=== PATIENT | female | born 1970 | race Caucasian/White ===

== ENCOUNTER → 2022-04-18 | Outpatient (REF) | payer OTHER, BC | LOC: M SFHCDERM 14:13 | PROVIDERS: ATTEND Physician Assistant | DX: D22.61 Melanocytic nevi of right upper limb, including shoulder (principal) ==

== ENCOUNTER → 2024-06-10 | Outpatient (REF) | payer OTHER | LOC: M SFHCDERM 17:46 | PROVIDERS: ATTEND Physician Assistant | DX: D49.2 Neoplasm of unspecified behavior of bone, soft tissue, and skin (principal) ==

== ENCOUNTER 2024-10-01 15:13 | Observation (INO) | payer OTHER ==
[~2024-10-01] VITALS: Ht 170.2 cm; Wt 81.8 kg
[2024-10-01 18:32] VITALS: BP 130/84; TEMP 98.1; O2SAT 95
[2024-10-01] MEDS ORDERED: MOM 30ML SUSPENSION UDC PO PRN (18:40)
[2024-10-01] MEDS: NS (Normal Saline) 0.9% 1,000 ML IV SCH (19:05)
[2024-10-01] MEDS: ACETAMINOPHEN 325 MG TAB PO PRN (19:05)
[2024-10-01] MEDS ORDERED: ULTRACET TAB PO PRN (19:40)
[2024-10-01 19:48] LABS: HEMATOCRIT 41.3 % (36.0-47.0); HEMOGLOBIN 14.3 g/dl (12.0-15.5); MEAN CORPUSCULAR HEMOGLOBIN 31.7 pg (27.0-33.0); MEAN CORPUSCULAR HGB CONC 34.6 g/dl (32.0-36.5); MEAN CORPUSCULAR VOLUME 91.6 fl (80.0-96.0); PLATELET COUNT, AUTOMATED 250 10^3/uL (150-450); RED BLOOD COUNT 4.51 10^6/uL (4.00-5.40); WHITE BLOOD COUNT 11.3 10^3/uL (4.0-10.0)
[2024-10-01] MEDS: traMADol 50 MG TAB PO PRN (20:10)
[2024-10-01 20:16] LABS: ALBUMIN 3.7 G/DL (3.2-5.2); ALKALINE PHOSPHATASE 84 U/L (35-104); ALT/SGPT 38 U/L (7.0-40); AST/SGOT 16 U/L (<34); BILIRUBIN,TOTAL 0.5 MG/DL (0.3-1.2); BLOOD UREA NITROGEN 19 MG/DL (9-23); CALCIUM LEVEL 9.3 MG/DL (8.5-10.1); CARBON DIOXIDE LEVEL 25 MMOL/L (20-31); CHLORIDE LEVEL 108 MMOL/L (98-107); GLOMERULAR FILTRATION RATE > 60.0 (>51); GLUCOSE, FASTING 134 MG/DL (60-100); POTASSIUM SERUM 3.9 MMOL/L (3.5-5.1); SODIUM LEVEL 142 MMOL/L (136-145); TOTAL PROTEIN 6.8 G/DL (5.7-8.2)
[2024-10-01] MEDS ORDERED: ZYRT10TA12 PO (20:40)
[2024-10-01] MEDS ORDERED: LEXA1TAB PO (20:40)
[2024-10-01] MEDS ORDERED: HOME MED LIST COMPLETE! XX SCH (20:40)
[2024-10-01 20:55] VITALS: BP 142/99; TEMP 97.7; O2SAT 96
[2024-10-02] VITALS (7 sets, daily range): BP systolic 117–137; BP diastolic 64–89; TEMP 97–98.2; O2SAT 89–96
[2024-10-02] MEDS: CETIRIZINE (ZyrTEC) 10 MG TAB PO SCH (09:00)
[2024-10-02] MEDS ORDERED: MORPHINE 2 MG/ML 1ML VIAL IV PRN ×2 (09:20→18:25)
[2024-10-02] MEDS: KETOROLAC 30 MG/ML 1ML VIAL IV SCH (10:08)
[2024-10-02] MEDS ORDERED: fentaNYL 100 MCG/2 ML INJECTION As Ordered ONE (15:26)
[2024-10-02] MEDS ORDERED: MIDAZOLAM INJ 2MG/2ML VIAL As Ordered ONE (15:26)
[2024-10-02] MEDS ORDERED: LIDOCAINE 2% 100MG/5ML SDV (FOR ANES.) As Ordered ONE (15:35)
[2024-10-02] MEDS ORDERED: propofoL 200 MG/20 ML VIAL As Ordered ONE (15:35)
[2024-10-02] MEDS ORDERED: ROCURONIUM BROMIDE 50MG/5ML VIAL As Ordered ONE (15:35)
[2024-10-02] MEDS ORDERED: dexmedeTOMIDine (4MCG/ML)200MCG/50ML BTL (PRECEDEX) As Ordered ONE (15:36)
[2024-10-02] MEDS ORDERED: ONDANSETRON 4MG 2ML VIAL As Ordered ONE (15:36)
[2024-10-02] MEDS: KETOROLAC 30 MG/ML 1ML VIAL IV PRN (16:14)
[2024-10-02] MEDS: ceFAZolin 2 GM/D5W 50 ML IV BAG As Ordered ONE (16:30)
[2024-10-02] MEDS ORDERED: ACETAMINOPHEN 1000MG/100ML IV BAG As Ordered ONE (16:43)
[2024-10-02] MEDS ORDERED: SUGAMMADEX SODIUM 500 MG/5 ML VIAL (BRIDION) As Ordered ONE (16:52)
[2024-10-02] MEDS ORDERED: KETOROLAC 60MG 2ML VIAL As Ordered ONE (16:53)
[2024-10-02] MEDS ORDERED: METOCLOPRAMIDE INJ 10MG/2ML VIAL As Ordered ONE (18:11)
[2024-10-02] MEDS ORDERED: diphenhydrAMINE 50MG/ML VIAL IV PRN (18:25)
[2024-10-02] MEDS ORDERED: fentaNYL 100 MCG/2 ML INJECTION IV PRN (18:25)
[2024-10-02] MEDS ORDERED: HYDROMORPHONE HCL 0.5 MG/ 0.5 ML SYRINGE IV PRN (18:25)
[2024-10-02] MEDS ORDERED: oxyCODONE 5MG TAB PO PRN (18:25)
[2024-10-02] MEDS ORDERED: ONDANSETRON 4MG 2ML VIAL IV PRN (18:25)
[2024-10-03] VITALS: BP 128/83; TEMP 97.2; O2SAT 92
[2024-10-03 01:00] VITALS: BP 133/70; TEMP 97; O2SAT 92
[2024-10-03] MEDS: ceFAZolin SOD 2 GM in IV 1 EA IV SCH (01:42)
[2024-10-03 04:00] VITALS: BP 114/74; TEMP 97.9; O2SAT 94
[2024-10-03] MEDS: ACETAMINOPHEN 325 MG TAB PO SCH (07:37)
[2024-10-03 08:00] VITALS: BP 145/85; TEMP 98.2; O2SAT 96
[2024-10-03] MEDS ORDERED: ASPIRIN 325 MG TAB PO SCH (09:00)
[2024-10-03] MEDS: ENOXAPARIN 40MG/0.4ML SYRINGE (J1650 PER 10MG) SC SCH (09:14)
[2024-10-03] MEDS ORDERED: ACET-897 PO (10:52)
[2024-10-03] MEDS ORDERED: ASPI325T57 PO (10:52)
[2024-10-03] MEDS ORDERED: IBUP-1114 PO (10:52)
[2024-10-03] MEDS: ceFAZolin SOD 2 GM in IV 1 EA IV ONE (13:05)
== END 2024-10-03 14:00 | disposition home or self-care (01) ==
LOC: M MS5PR 18:00 → EDSTATUS 18:19
PROVIDERS: ADMIT Internal Medicine; ATTEND Student in an Organized Health Care Education/Training Program
DX: S82.852A Displaced trimalleolar fracture of left lower leg, initial encounter for closed fracture (principal); W00.0XXA Fall on same level due to ice and snow, initial encounter; Y92.71 Barn as the place of occurrence of the external cause; Y93.9 Activity, unspecified; F32.A Depression, unspecified; J30.9 Allergic rhinitis, unspecified; Z79.899 Other long term (current) drug therapy; Z79.82 Long term (current) use of aspirin
CPT/HCPCS: 27823; 36415; 76000; 80053; 84702; 85027; 96365; 96366; 96372; 96375; 96376; 97116; 97161; 97530; C1713; J0131; J0665; J0690; J1100; J1650; J1885; J2250; J2405; J2765; J3010

== ENCOUNTER → 2024-10-09 | Outpatient (CLI) | payer OTHER ==
[~2024-10-09] MED LIST: ACET-897 PO; ASPI325T57 PO; IBUP-1114 PO; LEXA1TAB PO; ZYRT10TA12 PO
== END ==
LOC: M SOG 07:52
PROVIDERS: ATTEND Physician Assistant
DX: S82.852A Displaced trimalleolar fracture of left lower leg, initial encounter for closed fracture (principal)

== ENCOUNTER → 2024-10-29 | Outpatient (CLI) | payer OTHER | LOC: M SOG 07:57 | PROVIDERS: ATTEND Physician Assistant | DX: S82.852D Displaced trimalleolar fracture of left lower leg, subsequent encounter for closed fracture with routine healing (principal) ==

== ENCOUNTER → 2024-12-02 | Outpatient (CLI) | payer OTHER | LOC: M SOG 07:52 | PROVIDERS: ATTEND Physician Assistant | DX: S82.852A Displaced trimalleolar fracture of left lower leg, initial encounter for closed fracture (principal); W18.30XA Fall on same level, unspecified, initial encounter; Y92.009 Unspecified place in unspecified non-institutional (private) residence as the place of occurrence of the external cause ==

== ENCOUNTER → 2025-04-23 | Outpatient (CLI) | payer OTHER | LOC: M SOG 07:29 | PROVIDERS: ATTEND Orthopaedic Surgery | DX: S82.852D Displaced trimalleolar fracture of left lower leg, subsequent encounter for closed fracture with routine healing (principal); Z98.890 Other specified postprocedural states ==